=== PATIENT | male | born 1985 | race Two or more races ===

== ENCOUNTER 2021-01-25 21:21 | Emergency (ER) | payer SELFPAY ==
[~2021-01-25] VITALS: Ht 172.7 cm; Wt 113.0 kg
--- NOTE | 2021-01-25 22:01 | NUR ---
PT IN BED, RAPID BREATHING AND TEARS NOTED, PT STATES HES WORRIED ABOUT HIS FAMILY. PT INSTRUCTED TO WORK ON PURSED LIP BREATHING, COACHED ON SLOWING HIS RESPIRATIONS AND WORKING ON TAKING DEEP INHALES. PT PROVIDED FACIAL TISSUES FOR HIS TEARS.
[2021-01-25] MEDS ORDERED: LORazepam 1MG TABLET ONE (22:23)
[2021-01-25] MEDS ORDERED: LORazepam 1MG TABLET PO ONE (22:30)
--- NOTE | 2021-01-25 22:48 | NUR ---
PT NOW MORE CALM IN BED, STILL TEARFUL NOTED TO BE DESATTING ON ROOM AIR. PT PROVIDED O2 AT 3L/MIN VIA NASAL CANNULA, SPO2 IMPROVED TO 96%. PT COMPLAINING OF PAIN WITH DEEP BREATHS. LIGHTS DOWN IN ROOM FOR COMFORT. NO SIGNS OR SYMPTOMS OF ACUTE DSITRESS NOTED.
[2021-01-25 22:55] LABS: ALBUMIN 3.6 g/dL (3.4-5.0); ANION GAP 9 mmol/L (5-15); CALCIUM 8.8 mg/dL (8.5-10.1); CHLORIDE 109 mmol/L (98-107)
[2021-01-25 23:06] LABS: ALANINE AMINOTRANSFERASE 50 U/L (12-78); ALKALINE PHOSPHATASE 81 U/L (45-117); BILIRUBIN,TOTAL 0.5 mg/dL (0.2-1.0); CREATININE 1.04 mg/dL (0.7-1.3); TOTAL PROTEIN 7.6 g/dL (6.4-8.2)
[2021-01-25 23:13] LABS: BASOPHILS % (AUTO) 1 % (0-1); EOSINOPHILS % (AUTO) 1 % (1-7); LYMPHOCYTES % (AUTO) 17 % (22-44); MEAN CORPUSCULAR HGB CONC 34.3 g/dL (33.2-36.2); MEAN PLATELET VOLUME 7.8 fL (7.4-10.4); MONOCYTES % (AUTO) 9 % (2-9); NEUTROPHILS % (AUTO) 73 % (42-75); PLATELET COUNT 228 x10^3/uL (130-400); RED BLOOD COUNT 6.04 x10^6/uL (4.38-5.82); RED CELL DISTRIBUTION WIDTH 13.6 % (9.4-14.8)
[2021-01-25 23:15] LABS: MD NO
[2021-01-25 23:27] VITALS: BP 138/95
== END 2021-01-26 00:48 | disposition home or self-care (01) ==
LOC: ED 01-26 00:10
DX: F41.1 Generalized anxiety disorder (principal); R06.4 Hyperventilation; R53.1 Weakness; R11.2 Nausea with vomiting, unspecified; R06.00 Dyspnea, unspecified; R00.0 Tachycardia, unspecified; R07.89 Other chest pain
CPT/HCPCS: 36415; 71045; 80053; 82330; 84443; 85025; 93005; 99285